=== PATIENT | female | born 1970 | race African-American/Black ===

== ENCOUNTER 2018-01-25 11:00 | Emergency (ER) | payer OTHER ==
[~2018-01-25] VITALS: Ht 167.6 cm; Wt 81.8 kg
[2018-01-25 11:57] LABS: HEMATOCRIT 39.6 % (36.0-46.0); MCH 30.9 PG (29.0-34.0); MCHC 35.4 G/DL (30.0-36.0); MCV 87.4 FL (83-99); PLATELET COUNT 321 K/uL (156-360); RBC DIS.WIDTH-CV 11.9 % (11.8-14.6); RBC DIS.WIDTH-SD 37.8 % (39-53); RED BLOOD COUNT 4.53 M/uL (3.80-5.20); WHITE BLOOD COUNT 6.7 K/uL (4.1-10.2)
[2018-01-25 12:30] LABS: ALBUMIN 4.2 g/dL (3.2-4.8)
[2018-01-25 12:31] LABS: CHLORIDE 109 mEq/L (99-109); POTASSIUM 3.7 mEq/L (3.7-5.4); SODIUM 147 mEq/L (136-147)
[2018-01-25 12:33] LABS: GLUCOSE 119 mg/dL (70-99); TOTAL PROTEIN 7.2 g/dL (6.4-8.3)
[2018-01-25 12:35] LABS: TOTAL BILIRUBIN 0.5 mg/dL (0.0-1.0)
[2018-01-25 12:36] LABS: ALKALINE PHOSPHATASE 54 IU/L (3-129)
[2018-01-25 12:37] LABS: CREATININE 0.7 mg/dL (0.6-1.3); GFR ESTIMATE (CALCULATED) > 59 mL/min/
[2018-01-25 12:38] LABS: AST (GOT) 15 IU/L (2-34); UREA NITROGEN (BUN) 11 mg/dL (9-23)
[2018-01-25 12:40] LABS: ALT (GPT) 13 IU/L (3-49); LIPASE 22 U/L (1.0-51.0)
[2018-01-25 12:45] LABS: QUANTITATIVE HCG < 4.0 MIU/ML
[2018-01-25 13:57] LABS: APPEARANCE CLEAR ((CLEAR)); BILIRUBIN NEGATIVE; BLOOD NEGATIVE; COLOR STRAW ((YELLOW)); GLUCOSE (STRIP) NEGATIVE; KETONES 5; LEUKOCYTES NEGATIVE; NITRITE NEGATIVE; PROTEIN (STRIP) 30; UROBILINOGEN 0.2 MG/DL (0.2-1.0)
[2018-01-25] MEDS ORDERED: LEVSIN-SL0.125 MG SL (14:37)
[2018-01-25] MEDS ORDERED: ZOFRAN ODT4 MG PO (14:37)
[2018-01-25] MEDS ORDERED: PHENERGAN25 MG PR (15:09)
[2018-01-25 16:06] VITALS: BP 120/90
== END 2018-01-25 16:07 | disposition home or self-care (01) ==
LOC: EME 11:00
PROVIDERS: Nurse Practitioner Family
DX: R11.2 Nausea with vomiting, unspecified (principal); R19.7 Diarrhea, unspecified; E86.0 Dehydration; J45.909 Unspecified asthma, uncomplicated; Z88.2 Allergy status to sulfonamides
CPT/HCPCS: 74177; 80053; 81003; 83690; 84702; 85027; J1885; J2405; J2765; J7030